=== PATIENT | male | born 1995 | race Caucasian/White ===

== ENCOUNTER 2021-05-08 05:34 | Emergency (ER) | payer SELFPAY | END 2021-05-08 05:57 | disposition home or self-care (01) | LOC: MW.ED 05:34 | DX: F10.129 Alcohol abuse with intoxication, unspecified (principal) | CPT/HCPCS: 99282; 99284 ==

== ENCOUNTER 2021-09-05 15:54 | Emergency (ER) | payer SELFPAY | END 2021-09-05 16:17 | LOC: MW.ED 15:54 | DX: Z02.89 Encounter for other administrative examinations (principal) | CPT/HCPCS: 99281; 99283 ==

== ENCOUNTER 2024-12-07 16:01 | Emergency (ER) | payer MEDICAID ==
[2024-12-07 16:48] LABS: BASOPHILS ABSOLUTE AUTO 0.11 K/uL (0.00-0.20); BASOPHILS PERCENT AUTO 1.4 % (0.0-1.0); EOSINOPHILS ABSOLUTE AUTO 0.05 K/uL (0.00-0.45); EOSINOPHILS PERCENT AUTO 0.7 % (0.0-6.0); IMMATURE GRAN ABSOLUTE AUTO 0.03 K/uL (0.00-0.05); IMMATURE GRAN PERCENT AUTO 0.4 % (0.0-0.4); LYMPHOCYTES ABSOLUTE AUTO 2.59 K/uL (1.00-4.80); LYMPHOCYTES PERCENT AUTO 34.1 % (24.0-44.0); MEAN PLATELET VOLUME 9.4 fL (9.4-12.4); MONOCYTES ABSOLUTE AUTO 0.43 K/uL (0.00-0.80); MONOCYTES PERCENT AUTO 5.7 % (0.0-8.0); NEUTROPHILS ABSOLUTE AUTO 4.38 K/uL (1.80-7.70); NEUTROPHILS PERCENT AUTO 57.7 % (41.0-71.0); NRBC ABSOLUTE 0.00 K/uL (0.00-0.02); NRBC PERCENT 0.0 /100WBC (0.0-0.2); PLATELET COUNT,PLT 164 K/uL (150-400); RED BLOOD CELL COUNT 4.72 M/uL (4.52-5.90); WHITE BLOOD CELL COUNT,WBC 7.59 K/uL (3.9-11.3)
[2024-12-07 17:04] LABS: APPEARANCE,URINE CLEAR; GLUCOSE,URINE NEGATIVE (NEGATIVE); OCCULT BLOOD,URINE NEGATIVE (NEGATIVE)
[2024-12-07 17:14] LABS: AMPHETAMINES SCREEN, URINE NEGATIVE (CUTOFF=500); BUPRENORPHINE SCREEN,URINE NEGATIVE (CUTOFF=10); METHADONE SCREEN, URINE NEGATIVE (CUTOFF=200); METHAMPHETAMINES SCREEN, URINE NEGATIVE (CUTOFF=500); OXYCODONE SCREEN,URINE NEGATIVE (CUT0FF=100); PCP SCREEN,URINE NEGATIVE (CUTOFF=25); THC SCREEN,URINE 20 NG/ML NEGATIVE (CUTOFF=50)
[2024-12-07 17:19] LABS: A/G RATIO 1.0 (0.9-1.6); ALANINE AMINOTRANSFERASE,ALT 58 IU/L (14-63); ASPARTATE AMNIOTRANSFERASE,AST 63 IU/L (15-37); BILIRUBIN TOTAL 0.6 mg/dL (0.2-1.0); BLOOD UREA NITROGEN,BUN 9 mg/dL (7.0-18.0); CARBON DIOXIDE,CO2 26.1 mmol/L (21.0-32.0); CHLORIDE,CL 105 mmol/L (98-107); CREATININE 0.8 mg/dL (0.8-1.3); EST CRCL DRUG DOSING (CG) 164.26 mL/min; ESTIMATED GFR 121 mL/min (>60); ETHANOL BLOOD MEDICAL 363 mg/dL; GLUCOSE RANDOM 152 mg/dL (74-106); POTASSIUM,K 3.3 mmol/L (3.5-5.1); PROTEIN TOTAL,TP 7.5 g/dL (6.4-8.2); SODIUM,NA 140 mmol/L (136-148); TSH ULTRASENSITIVE 0.43 uIU/mL (0.36-3.74)
[2024-12-07 17:22] LABS: EPITHELIAL CELLS,URINE NOT SEEN (NONE-FEW)
[2024-12-07] MEDS: LORazepam 2 MG/ML SDV IM ONE (17:45)
[2024-12-07] MEDS: diphenhydrAMINE 50 MG/ML SDV IM ONE (17:45)
[2024-12-08] MEDS: Potassium Chloride 10% 20 MEQ/15 ML Soln 15 ML UD Cup PO ONE (02:44)
[2024-12-08] MEDS: Potassium Chloride 20 MEQ Tab.ER PO ONE (02:49)
== END 2024-12-08 14:31 ==
LOC: MW.ED 16:01
DX: F10.129 Alcohol abuse with intoxication, unspecified (principal); R45.851 Suicidal ideations; Y90.9 Presence of alcohol in blood, level not specified
CPT/HCPCS: 36415; 80053; 80143; 80179; 80305; 80307; 81001; 83735; 84443; 85025; 96372; 99285; A9270; J1200; J1630; J2060